=== PATIENT | female | born 1965 | race Caucasian/White ===

== ENCOUNTER 2016-10-21 17:12 | Emergency (ER) | payer MEDICAID, OTHER ==
[~2016-10-21] VITALS: Ht 162.6 cm; Wt 55.0 kg
[2016-10-21 17:18] VITALS: Ht 162.6 cm; Wt 55.0 kg
--- NOTE | 2016-10-21 17:27 | ERD ---
ER Documentation Chief Complaint Date/Time DATE: 10/21/16 Chief Complaint Dog bite to left middle and index fingers HPI The patient is a 51-year-old female who presents to the Emergency Department with complaint of wounds secondary to dog bite of the left index and middle fingers. The patient reports that today she went to pet the neighbor's dog, who she knows, when the dog bit the distal aspect of the left index and middle fingers. The patient now notes small abrasions to the digits, with no surrounding erythema, warmth, swelling or drainage. No active bleeding. The patient reports a throbbing sensation to the digits, though denies any numbness , paresthesias or weakness. Denies any restricted range of motion. Denies any radiation of pain. The patient's tetanus status is up-to-date. ROS All systems reviewed and are negative except as per history of present illness. Medications Home Meds Active Scripts Ibuprofen* (Motrin*) 600 Mg Tab, 600 MG PO Q6, #20 TAB Prov:BAILEE SCRUGGS PA-C 10/21/16 Amoxicillin/Potassium Clav (Amox-Clav 875-125 mg Tablet) 875-125 mg Tab, 1 TAB PO BID for 7 Days, #14 TAB Prov:BAILEE SCRUGGS PA-C 10/21/16 Allergies Allergies: Coded Allergies: pregabalin (Verified Allergy, Unknown, 10/21/16) vancomycin (Verified Allergy, Unknown, 10/21/16) Physical Exam Vitals Vital Signs Date Time Temp Pulse Resp B/P Pulse Ox O2 Delivery O2 Flow Rate FiO2 10/21/16 17:18 98.6 78 18 123/78 98 Physical Exam GENERAL: Well-developed, well-nourished, female, in no acute distress HEENT: Head is normocephalic, atraumatic. No scleral pallor or icterus. Conjunctiva pink. Moist mucous membranes. NECK: Supple. RESPIRATORY: Normal expiratory effort. CARDIOVASCULAR: Normal peripheral perfusion. EXTREMITIES: No clubbing, cyanosis, or edema. Normal skin perfusion. Joints non- tender, no joint effusion. Full range of motion of both the upper and lower extremities bilaterally. Normal flexion and extension at the MCP, PIP and DIP joints. Muscle tone is normal. No focal swelling or erythema. Distal pulses are palpable, 2+ bilaterally. Capillary refill is less than 2 seconds. NEUROLOGIC: The patient is alert, awake, and oriented. No focal neurologic deficits. Motor and sensation grossly intact. INTEGUMENT: Superficial abrasions distal to the DIP joints of the left index and middle fingers, one on each of the finger pads, and one on each of the inferior nail folds/cuticles, no underlying nailbed involvement. No subungual hematomas. No active drainage/bleeding. No surrounding erythema or swelling. No foreign bodies noted. Distal neurovascular status intact. PSYCHIATRIC: Cooperative. Procedures/MDM DIAGNOSTIC TESTS AND INTERPRETATION: PROCEDURE: Left hand series CLINICAL INDICATION: Left hand pain after trauma. Diabetic. TECHNIQUE: Three views of the left hand were obtained. COMPARISON: No prior studies are available for comparison. FINDINGS:There is normal mineralization and alignment of the bones of the left hand. There is no evidence of acute fracture or dislocation. Joint spaces are well maintained. There is no evidence of osteophyte formation or erosions. A trace subcutaneous gas in the distal third digit. IMPRESSION: 1. Trace subcutaneous gas in the distal third digit. 2. No evidence of fracture or dislocation. .Harry Lai MD, MD Date Time Electronically viewed and signed by .Harry Lai MD, MD on 2016 18:18 MEDICAL DECISION MAKING: This is a 51-year-old female presenting to the emergency department with abrasions status post dog bites to her index and middle finger. The patient had no other abnormalities on physical examination. Vital signs remained stable. X-rays revealed no presence of retained foreign bodies, fractures, avulsions, or any other bony involvement. Trace subcutaneous gas noted in the distal third digits, likely secondary to the incident of today. Doubt anaerobic infection, as no findings of cellulitis or infection at this time, and incident occurred prior to arrival. As the patient's abrasions and puncture wounds were minimal, they were copiously irrigated and bacitracin was applied. There was no need to close the abrasions as they were extremely superficial with no current active bleeding. No large lacerations or skin avulsions present. Tetanus status is up-to-date. The patient was instructed to follow up with her primary care provider within 2-3 days for further evaluation and treatment. After rest, the patient reports no new complaints. Upon my review and interpretation of the patient's presentation and overall ER course, I believe the patient's symptoms are most consistent with abrasions due to dog bite. There are no current signs of tendon laceration, tenosynovitis, large lacerations, open fracture, infection, retained foreign body or any other emergent medical condition. At this time, the patient is in stable condition and therefore can be discharged home with a prescription for Augmentin as prophylaxis, and strict return precautions for signs of infectious process, worsening or deteriorating condition. The patient has been instructed to follow up with her primary care provider for reevaluation and further management within 2-3 days or to return to the ER sooner for any worsening symptoms. I shared my medical decision making and plan with the patient at length and in great detail, and the patient verbally understands and agrees with the plan for further observation and care as an outpatient. At the time of discharge, all questions were answered. Departure Diagnosis: Primary Impression: Dog bite of index finger Encounter type: initial encounter Qualified Code: S61.258A - Dog bite of index finger, initial encounter Additional Impression: Dog bite of middle finger Encounter type: initial encounter Qualified Code: S61.258A - Dog bite of middle finger, initial encounter Condition: Stable Patient Instructions: Dog Bite Additional Instructions: Follow-up with your primary medical provider within 2-3 days for wound check, reevaluation and further management. Return to the ER sooner for any new or worsening symptoms, development of redness, swelling, warmth, tenderness, drainage, fevers, vomiting or any other concerning symptoms. BAILEE SCRUGGS PA-C Oct 21, 2016 17:26
--- NOTE | 2016-10-21 18:19 | RADRPT ---
PROCEDURE: Left hand series CLINICAL INDICATION: Left hand pain after trauma. Diabetic. TECHNIQUE: Three views of the left hand were obtained. COMPARISON: No prior studies are available for comparison. FINDINGS: There is normal mineralization and alignment of the bones of the left hand. There is no evidence of acute fracture or dislocation. Joint spaces are well maintained. There is no evidence of osteophy te formation or erosions. A trace subcutaneous gas in the distal third digit.. IMPRESSION: 1. Trace subcutaneous gas in the distal third digit. 2. No evidence of fracture or dislocation.. RPTAT: HJBF .Harry Lai MD, MD Date Time Electronically viewed and signed by .Harry Lai MD, MD on 10/21/2016 18:18 .B/
[2016-10-21] MEDS ORDERED: IBUP-1542 PO (18:27)
[2016-10-21] MEDS ORDERED: AMOX1TAB10 PO (18:27)
== END 2016-10-21 18:26 | disposition home or self-care (01) ==
LOC: E/R 17:12
DX: S61.251A Open bite of left index finger without damage to nail, initial encounter (principal); S61.253A Open bite of left middle finger without damage to nail, initial encounter; W54.0XXA Bitten by dog, initial encounter; Y92.9 Unspecified place or not applicable